=== PATIENT | female | born 1985 | race African-American/Black ===

== ENCOUNTER 2019-09-15 09:33 | Emergency (ER) | payer SELFPAY ==
[~2019-09-15] VITALS: Ht 157.5 cm; Wt 59.0 kg
--- NOTE | 2019-09-15 09:45 | NUR ---
PT LEFT WITHOUT BEING SEEN BY
[2019-09-15 09:59] VITALS: BP 114/84
== END 2019-09-15 09:47 | disposition left against medical advice (07) ==
LOC: ER 09:39
DX: M79.18 Myalgia, other site (principal); R11.0 Nausea; Z53.21 Procedure and treatment not carried out due to patient leaving prior to being seen by health care provider